=== PATIENT | male | born 1990 | race Two or more races ===

== ENCOUNTER 2021-07-07 20:01 | Emergency (ER) | payer OTHER ==
[2021-07-07 20:08] VITALS: BP 122/72; PULSE 69; TEMP 98; BMI 26.9
[2021-07-07] MEDS ORDERED: FAMOTIDINE 20 MG/50 ML IVPB 20 MG/50 ML MG IVPB ONE ×2 (22:49→23:05)
[2021-07-07] MEDS ORDERED: MAG HYDROX/AL HYDROX/SIMETH 30 ML UNIT-DOSE CUP PO ONE (22:52)
[2021-07-07] MEDS ORDERED: MAG HYDROX/AL HYDROX/SIMETH 30 ML UNIT-DOSE CUP ONE (23:05)
[2021-07-07 23:45] LABS: BASO % 0.7 % (0-2.0); EOS % 1.8 % (0-4.5); HEMATOCRIT 40.8 % (35.4-49); HEMOGLOBIN 14.1 GM/dL (11.7-16.9); LYMPH % 38.3 % (8-40); MCH 30.1 pg (25.7-33.7); MCHC 34.6 g/dl (32.0-35.9); MEAN CELL VOLUME 87.2 fl (80-96); MEAN PLT VOLUME 8.9 fl (7.5-11.1); MONO % 15.1 % (3.8-10.2); NEUT % 44.1 % (42.8-82.8); PLATELET COUNT 203 10^3/uL (134-434); RBC 4.68 M/mm3 (4.00-5.60); RDW 13.1 % (11.9-15.9); WHITE BLOOD COUNT 4.5 K/mm3 (4.0-10.0)
[2021-07-07] MEDS ORDERED: ALBUTEROL SO4 HFA INHALER IH ONE (23:52)
[2021-07-08 00:05] LABS: CALCIUM 8.6 mg/dL (8.5-10.1)
[2021-07-08 00:06] LABS: ALBUMIN 3.7 g/dl (3.4-5.0); BLOOD UREA NITROGEN 10.1 mg/dL (7-18); MAGNESIUM 2.1 mg/dL (1.8-2.4)
[2021-07-08 00:09] LABS: CREATININE 1.1 mg/dL (0.55-1.3)
[2021-07-08 00:10] LABS: BILIRUBIN,TOTAL 0.4 mg/dL (0.2-1); TOT PROT 7.6 g/dl (6.4-8.2)
[2021-07-08] MEDS ORDERED: SUCRALFATE 1 GM/10 ML UNIT DOSE CUPS PO ONE (02:03)
== END 2021-07-08 07:44 | disposition home or self-care (01) ==
LOC: JER 20:01
PROC: 3E033GC Introduction of Other Therapeutic Substance into Peripheral Vein, Percutaneous Approach (ICD-10-PCS; principal; 2021-07-07)
DX: R10.9 Unspecified abdominal pain (principal)
CPT/HCPCS: 36415; 74019-TC-FY; 74177-TC; 76705-TC; 80053; 83690; 83735; 84484; 85025; 93005; 93010; 99285-25